=== PATIENT | female | born 1970 | race Caucasian/White ===

== ENCOUNTER 2017-12-15 02:03 | Outpatient (CLI) | payer BC | END 2017-12-15 02:04 | disposition short-term general hospital (02) | LOC: EMS 02:03 | PROVIDERS: ATTEND Surgery | DX: R40.20 Unspecified coma (principal) | CPT/HCPCS: A0425; A0429 ==

== ENCOUNTER 2024-01-18 08:25 | Outpatient (CLI) | payer MEDICAID ==
--- NOTE | 2024-01-18 09:14 | Sleep Patient Instructions ---
Sleep Center Visit Summary - Patient Visit Information Reason for Visit: Initial consult for evaluation of sleep disordered breathing and other sleep issues. - Patient Instructions Instructions Attached: Sleep Study Home Monitor, Sleep Study Additional Instructions: You will be completing a sleep study, either an in-lab polysomnography (PSG) or home sleep study (HST). You will follow-up in the sleep care office after the sleep study is completed to hear the results and talk about therapy, if needed. You will be called by our office staff to schedule this appointment, but you may contact us with any questions. - Clinic Information Contact: [facility] [address] [place] [id number] [email or web address] T: [phone]
--- NOTE | 2024-01-18 09:17 | SLEEP CARE CONSULTATION ---
Information from patient questionnaire entered by Adrianna Lira. I have reviewed and concur with the information entered by Adrianna Lira. This document represents the service I personally performed and the decisions made by me, Mariam Collazo ARNP. History of Present Illness Service Date and Time: 01/18/2024 08 Reason for Visit: New patient Accompanied by: herminia gustafson Chief Complaint: reports: Insomnia, Unrefreshed sleep, Snoring, Excessive daytime sleepiness, Observed pauses in breathing, Frequent awakenings at night, Other (It feels like my throat collapses when lying down) Date of Onset: One year plus Usual bedtime: 11 PM Time it takes to fall asleep: Up to 2 hours Snores at night: Yes Observed to quit breathing while asleep: No (I don't sleep with anybody, age 53) Sleeps alone due to snoring: No (I don't sleep with anybody, age 53) Number of times waking at night: Approximately 3 Reasons for waking at night: reports: Choking, Gasping for air, Bathroom, Other (Nightmares). denies: Snoring Toss, Turn, or Twitch while sleeping: Yes Recalls having dreams: Yes (Nightmares) Usually gets out of bed at: 9:30 approximately Feels refreshed in the morning: No (Feel horrible) Morning headache: Yes (Sometimes. Usually resolves in 1 hour with migraine meds) Sleepy or fatigued during the day: Yes Ever fallen asleep while driving: No Takes day naps: Yes (Sometimes; 1-2 days a week, last about 30-60 mins) Dreams during day naps: No Prior sleep studies: No Additional HPI information: I had the pleasure of seeing MILTON SHETTY today regarding the possibility of her having a sleep disorder. Her current complaints are excessive daytime sleepiness, frequent night awakenings, insomnia, observed pauses in breathing, snoring and unrefreshed sleep. She says that she feels like her throat is collapsing when laying down. She is not getting "quality sleep" and is tired all the time. She has had some difficulties with swallowing in last 5 years. She has nightmares where she feels like she is "suffocating". She has nightmares she has about 4 nights a week that she remembers. She has woke up feeling like she is choking and gasping for air. She wakes up with headaches 1-2 times a week. - Parasomnia Symptoms Ever been unable to move upon waking from sleep: Yes (happens about 2 times a mo nth) Walks in sleep: No Talks in sleep: No Ever acted out dreams in sleep: No Ever felt weak in the knees when startled or emotional: No Bothered by creepy, crawly, restless sensations in legs: Yes (Sometimes; worse at night) Problems with memory or concentration: Yes (MS. 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 Patient is and lives in [place]. Have you smoked in the past 12 months: No Cigarettes per day (20/pack): 20 Quit date: 1990 Alcohol use: No Caffeine use: Yes Caffeine amount and frequency: 1 cup of coffee once daily Family History Family history of sleep disordered breathing: Yes Family Hx Sleep Apnea: Father: Snoring Allergies and Home Medications Known drug allergies: No Drug allergies reviewed: Yes Home medication list reviewed: Yes (see updated list in EMR) Review of Systems Cardiovascular: reports: chest pain. denies: high blood pressure Respiratory: reports: shortness of breath Gastrointestinal: reports: heartburn, difficulty swallowing, nausea, abdominal pain (Sometimes) Urinary: reports: frequency (Mesh sling surgery in 2018), urgency Neurological: reports: headaches, head trauma, disorientation (Sometimes), gait or balance problems, other (Botox for migraines. MS optic nerve damage. MS brain and spinal lesions. Spinal surgery 2021.) Psychiatric: reports: anxiety, depression, mood disorder (MS), claustrophobia Ear/Nose/Throat: reports: sinus problems, dry mouth/throat, wisdom teeth removed, other (Placedo syndrome). denies: tonsillectomy Endocrine: reports: thyroid disease, sluggishness (/tired), too hot or cold (Too hot) Musculoskeletal: reports: joint pain (/stiffness), neck pain, back pain, joint swelling, muscle pain or cramping, mobility problems, other (Foot and ankle surgeries 2022) Immunologic: reports: sneezing (/runny nose), allergies to food or environment (Sometimes. Lactose intolerant and use albuterol inhaler) Physical Exam Vital signs obtained and entered by: Mariam Bull NP Blood Pressure: 114/76 Cuff size: regular (left arm) Heart Rate: 85 O2 Saturation: 97 Height: 5 ft 3.5 in Weight: 178 lb 9.6 oz Body Mass Index: 31.1 BMI Classification: Obese Neck circumference: 13.25 (inches) Mouth and throat: narrow oropharynx Soft palate: normal Hard palate: normal Uvula: normal Uvula visualization: 50% Mallampati Class II Tongue: enlarged in size with teeth hoffmann on lateral edges Tonsils: small Neck: normal w/o lymphadenopathy or thyromegaly Heart: regular rate and rhythm Lungs: clear bilaterally Impression and Plan 1. Suspected Obstructive Sleep Apnea-Hypopnea Syndrome, as suggested by a history of loud and irregular snoring, gasping or choking in sleep, morning headache, frequent awakening during the night, unrefreshed sleep, cognitive i mpairment, and excessive daytime sleepiness. Narrow oropharynx and obesity are common predisposing factors for obstructive sleep apnea-hypopnea syndrome. I recommend proceeding to polysomnography to confirm the diagnosis and to assess severity. If the patient has significant sleep disordered breathing, a manual CPAP titration study will also be performed to find the optimal treatment pressure. I informed the patient of what the sleep studies involve and after some discussion, obtained agreement to proceed. The pathophysiology of obstructive sleep apnea-hypopnea syndrome was discussed with the patient and health risks of cardiovascular and cerebrovascular disease if not treated. Risks of drowsy driving discussed in detail and patient advised to avoid long distance driving and to washing machine loader and puller at the first sign of drowsiness. Patient agreed to plan. * Schedule polysomnography * Avoid long distance driving or driving when feeling sleepy. * Avoid alcohol, sedative and muscle relaxant around bedtime. * Attempt to lose weight. * Review instructions provided by trained office staff on how to prepare for the sleep study. * Return for follow-up after sleep study completed. Counseling Topics: Weight loss health impact Visit Type: In Office Time Spent with Patient (minutes): 31 Provider Statement: I spent 100% of the Face to Face Visit with the patient with greater than 50% spent counseling the patient and coordination of care.
[2024-01-18 09:23] VITALS: BP 114/76; O2SAT 97
== END 2024-01-18 08:26 | disposition home or self-care (01) ==
LOC: SC 08:25
PROVIDERS: ATTEND Nurse Practitioner Family
DX: G47.10 Hypersomnia, unspecified (principal); R06.83 Snoring; R51.9 Headache, unspecified; G47.8 Other sleep disorders; R41.89 Other symptoms and signs involving cognitive functions and awareness
CPT/HCPCS: 99203; 99212

== ENCOUNTER 2024-03-13 12:18 | Outpatient (CLI) | payer MEDICAID | END 2024-03-13 12:19 | disposition home or self-care (01) | LOC: SC 12:18 | PROVIDERS: ATTEND Nurse Practitioner Family | DX: R09.02 Hypoxemia (principal) | CPT/HCPCS: 95806 ==

== ENCOUNTER 2024-07-10 08:46 | Outpatient (CLI) | payer MEDICAID ==
--- NOTE | 2024-07-10 09:24 | Sleep Patient Instructions ---
Sleep Center Visit Summary - Patient Visit Information Reason for Visit: Sleep study follow-up - Patient Instructions Additional Instructions: Your sleep study today was negative for significant sleep disordered breathing. However, you did have elevated respiratory episodes when sleeping on your back. You should avoid sleeping on your back to control these respiratory episodes. You were found to have episodes of snoring. There are different ways to control snoring including weight loss, oral devices made by a dentist or surgical options through ENT specialist. You should not use oral devices that do not fit properly because they can affect your bite. You should also check insurance coverage of oral devices for snoring because they may not be cover well. You may obtain a referral to an ENT specialist through your primary provider. Because your sleep study showed borderline results and was of fair quality, you will be completing a sleep study in-lab. You will follow-up in the sleep care office after the sleep study is completed to hear the results and talk about therapy, if needed. You will be called by our office staff to schedule this appointment, but you may contact us with any questions. - Clinic Information Contact: [facility] [address] [place] [address] [email or web address] T: [phone]
--- NOTE | 2024-07-10 09:27 | SLEEP CARE CONSULTATION ---
Information from patient questionnaire entered by Elina Culevr. I have reviewed and concur with the information entered by Elina Culver. This document represents the service I personally performed and the decisions made by , Mariam Collazo ARNP. History of Present Illness Service Date and Time: 07/10/2024 0846 Initial [place] Sleepiness Scale score: 1 (in 2023) Current [place] Sleepiness Scale score: 1 (07/10/24) Additional HPI information: MILTON SHETTY returns for follow up and results of the recently performed home sleep study done on 03/13/24. The patient was informed of the following findings: No significant sleep disor dered breathing with an average AHI of 4.4 and jefry oxygen saturation of 86%. Her supine AHI was elevated at 7.6. Her study was fair quality due to partial loss of pulse oximetry. I explained the pathophysiology behind obstructive sleep apnea. Patient does not have sleep apnea and was advised how weight gain could increase the risk of developing sleep apnea in the future. I strongly encouraged the patient to lose weight. Patient does not have significant sleep disordered breathing but has elevated AHI in supine position so advised positional therapy. Methods to achieve positional management therapy were discussed; such as, positioning with pillows, wearing a T-shirt with tennis balls sewn into the back or commercially available products. Patient has light snoring. Snoring can be reduced by weight loss. Weight loss is best achieved with diet consult. Patient instructed to contact PCP for referral. Snoring can also be treated with an oral appliance from a dentist. Advised to check insurance coverage. In addition, an ENT evaluation can be do to see if other treatment is indicated. Patient does not drink alcohol. Patient was cautioned about risks of drowsy driving until sleepiness symptoms resolve. Patient denies drowsy driving. Sleep Study - Results Type of Sleep Study: Home sleep study (COMPLETED 03/13/24) Prior sleep studies: No Polysomnography/Home Sleep Study results: Physician Impression: The quality of the study is fair due to partial loss of pulse oximetry signal. The length of the study is adequate (> 240 minutes). Please also see the tabulated and graphic data. 1. No significant sleep disordered breathing with an AHI of 4.4/hr and jefry SaO2 of 86%. During the study, the patient had 5 apneas (5 obstructive, 0 central, 0 mixed) and 21 hypopneas. The longest episode lasted 69.5 seconds. The few respiratory events occurred only during supine sleep (supine AHI was 7.6 and non-supine, 0.00). 2. Hypoxemia (ICD-10 R09.02), mild, with the lowest oxygen saturation of 86 % and 27.8 minutes with SaO2 under 90%. Baseline oxygen saturation was normal (Average oxygen saturation was 92%). Allergies and Home Medications Known drug allergies: No Drug allergies reviewed: Yes Home medication list reviewed: Yes (no changes) Allergy and home medication list: Allergies No Known Drug Allergies Allergy (Verified 07/10/24 08:47) Review of Systems Review of systems same as previous: Yes (NO CHANGE) Physical Exam Vital signs obtained and entered by: ELINA Ryan MA Blood Pressure: 120/79 (LEFT ARM) Cuff size: regular Heart Rate: 88 O2 Saturation: 95 Height: 5 ft 3.5 in Weight: 168 lb 12.8 oz Body Mass Index: 29.4 BMI Classification: Overweight Impression and Plan 1. Suspected Obstructive Sleep Apnea-Hypopnea Syndrome, as suggested by a history of loud and irregular snoring, gasping or choking in sleep, morning headache, frequent awakening during the night, unrefreshed sleep, and excessive daytime sleepiness. I recommend proceeding to polysomnography to confirm the diagnosis and to assess severity. If the patient has significant sleep disordered breathing, a manual CPAP titration study will also be performed to find the optimal treatment pressure. I informed the patient of what the sleep studies involve and after some discussion, obtained agreement to proceed. The pathophysiology of obstructive sleep apnea-hypopnea syndrome was discussed with the patient and health risks of cardiovascular and cerebrovascular disease if not treated. Risks of drowsy driving discussed in detail and patient advised to avoid long distance driving and to lung puller at the first sign of drowsiness. Patient agreed to plan. 2. Overweight, unspecified. Currently patients BMI is 29.4. Obesity increases the risk of apnea, CPAP pressure requirements and overall health risks especially cardiovascular and diabetes. Thus patient is advised to lose weight. * Schedule polysomnography * Attempt to lose weight. * Review instructions provided by trained office staff on how to prepare for the sleep study. * Return for follow-up after sleep study completed. Counseling Topics: Weight loss health impact Plan: in lab PSG Visit Type: In Office Time Spent with Patient (minutes): 20 Provider Statement: I spent 100% of the Face to Face Visit with the patient with greater than 50% spent counseling the patient and coordination of care.
[2024-07-10 09:34] VITALS: BP 120/79; O2SAT 95
== END 2024-07-10 08:47 | disposition home or self-care (01) ==
LOC: SC 08:46
PROVIDERS: ATTEND Nurse Practitioner Family
DX: R06.83 Snoring (principal); G47.8 Other sleep disorders; R51.9 Headache, unspecified; G47.10 Hypersomnia, unspecified; E66.3 Overweight; Z68.29 Body mass index [BMI] 29.0-29.9, adult
CPT/HCPCS: 99212; 99213